=== PATIENT | male | born 1970 | race African-American/Black ===

== ENCOUNTER 2016-11-17 03:14 | Emergency (ER) | payer MEDICARE, MEDICAID ==
[~2016-11-17] VITALS: Ht 182.9 cm; Wt 91.0 kg
[~2016-11-17 03:14] MED LIST: KEPP250
[2016-11-17] MEDS ORDERED: ONDANSETRON HCL 4MG/2ML VIAL IV STA (03:36)
[2016-11-17] MEDS ORDERED: SODIUM CHLORIDE 0.9% 1,000 ML IV ONE (03:36)
[2016-11-17] MEDS ORDERED: LEVETIRACETAM 500MG PREMIX 100 ML IV ONE (03:45)
[2016-11-17] MEDS ORDERED: DIPHENHYDRAMINE 50MG/ML VIAL IV ONE (05:15)
[2016-11-17] MEDS ORDERED: DIPHENHYDRAMINE 50MG/ML VIAL ONE (05:18)
[2016-11-17 07:53] VITALS: BP 131/77
== END 2016-11-17 07:58 | disposition home or self-care (01) ==
LOC: ER 03:14
DX: R56.9 Unspecified convulsions (principal); F12.10 Cannabis abuse, uncomplicated
CPT/HCPCS: 82962; 99283; J1200; J1953; J2405; J7030

== ENCOUNTER 2021-06-10 23:29 | Emergency (ER) | payer MEDICAID ==
[~2021-06-10] VITALS: Ht 185.4 cm; Wt 91.0 kg
[2021-06-11] MEDS ORDERED: SODIUM CHLORIDE 0.9% 1,000 ML IV ONE
[2021-06-11 00:25] LABS: BASOPHILS % 1.2 % (0.0-2.0); EOSINOPHILS % 8.3 % (0.0-5.0); HEMOGLOBIN. 12.9 g/dL (14.0-18.0); LYMPHOCYTES % 19.2 % (20.0-50.0); MEAN CORPUSCULAR HEMOGLOBIN 29.1 pg (28.0-32.0); MEAN CORPUSCULAR VOLUME 85.6 fL (80.0-94.0); MEAN PLATELET VOLUME 7.5 fl (7.4-10.4); MONOCYTES % 6.2 % (2.0-8.0); NEUTROPHILS % 65.1 % (40.0-76.0); PLATELET 176 x1000/uL (130-400); RED BLOOD CELL COUNT 4.44 mill/uL (4.7-6.1); RED CELL DISTRIBUTION WIDTH 14.3 % (11.6-14.6)
[2021-06-11 00:33] LABS: CHLORIDE 107 mEq/L (98-107)
[2021-06-11 00:38] LABS: ETHANOL BLOOD < 10 mg/dL
[2021-06-11 00:43] LABS: VALPROIC ACID <3.0 ug/mL ug/mL (50-100)
[2021-06-11 00:51] LABS: CARBAMAZEPINE < 0.5 ug/mL (4-12); PHENOBARBITAL < 2.1 ug/mL (15.0-40.0)
[2021-06-11 02:00] VITALS: BP 154/94
[2021-06-11] MEDS ORDERED: LEVETIRACETAM 500MG TABLET PO ONE (02:30)
== END 2021-06-11 03:51 | disposition home or self-care (01) ==
LOC: ER 23:29
DX: G40.909 Epilepsy, unspecified, not intractable, without status epilepticus (principal); I10 Essential (primary) hypertension
CPT/HCPCS: 36415; 70450; 71045; 80053; 80156; 80165; 80184; 80185; 80320; 84484; 85025; 93005; 96360; 99285; J7030; G0480